=== PATIENT | female | born 1990 | race Caucasian/White ===

== ENCOUNTER 2021-08-07 14:12 | Emergency (ER) | payer OTHER, SELFPAY ==
[2021-08-07 14:31] VITALS: BP 109/65; PULSE 97; RESP 16; TEMP 37.1; O2SAT 96
--- NOTE | 2021-08-07 14:43 | XRR_ITS ---
PROCEDURE INFORMATION: Exam: XR Chest Exam date and time: 08/07/2021 2:43 PM Age: 30 years old Clinical indication: Cough and shortness of breath; Additional info: Covid + TECHNIQUE: Imaging protocol: XR of the chest. Views: 1 view. COMPARISON: No relevant prior studies available. FINDINGS: Lungs: Prominent right upper lobe pulmonary arteries otherwise unremarkable exam Pleural spaces: Unremarkable. No pleural effusion. No pneumothorax. Heart/Mediastinum: Unremarkable. No cardiomegaly. Bones/joints: Unremarkable. XR/XR chest 1V portable [id number] IMPRESSION: No acute findings.
--- NOTE | 2021-08-07 14:50 | W.ED.COVID ---
HPI - COVID General: Chief Complaint: COVID symptoms Stated Complaint: covid +:diff breathing, low O2, cp w/inspiration Time Seen by Provider: 08/07/21 14:45 Source: patient Mode of arrival: ambulatory Limitations: no limitations Triage information: Has fever, cough or shortness of breath. Exposure to COVID + person last 14 days History of Present Illness: HPI Narrative: Patient is a 30-year-old female known COVID positive patient on day 6 of symptoms here for complaints of shortness of breath, trouble breathing with exertion, and some lightheadedness/dizziness. Patient tested positive at a drive through facility in [place], [place]. Positive results verified on her phone. MD complaint: known COVID positive Prior covid testing: yes, results known Prior testing date: 08/01/21 COVID 19 common symptoms: positive non-productive cough, dyspnea, body aches, headache(s) and chest tightness; negative throat pain, nasal congestion, nausea, vomiting or diarrhea COVID 19 other sytmptoms: positive chest pain Onset (ago): day(s) Severity: moderate Pertinent comorbid conditions: obesity COVID Results: No Data to Display Review of Systems Const: Reports: body aches ENMT: Denies: throat pain, odynophagia, nasal discharge or nasal congestion Card: Reports: chest pain, lightheadedness and dyspnea on exertion; Denies: palpitations, irregular heart rhythm, edema, swelling of feet/ankles, syncope, pre-syncope, orthopnea, leg pain with exertion or acrocyanosis Resp: Reports: dyspnea and non-productive cough; Denies: wheezing, hemoptysis or chest congestion GI: Denies: abdominal pain, nausea, vomiting or diarrhea Musc: Denies: neck pain or back pain Skin/Breast: Denies: rash Neuro: Reports: headache(s) Physical Exam Const: COMMON NORMALS: no acute distress, patient oriented x3, no limitations and alert GENERAL APPEARANCE: cooperative NUTRITIONAL APPEARANCE: obese ORIENTATION/CONSCIOUSNESS: Yes awake, Yes oriented to person, Yes oriented to place and Yes oriented to time Resp: COMMON NORMALS: normal respiratory effort and clear to auscultation bilaterally AUSCULTATION: clear to auscultation bilaterally Cardio: COMMON NORMALS: regular rate and regular rhythm RATE: regular rate RHYTHM: regular rhythm Extremity: COMMON NORMALS: no clubbing, cyanosis or edema, no calf tenderness and no pedal edema Neuro: COMMON NORMALS: patient oriented x3 SENSORIUM/ORIENTATION: Yes alert, Yes oriented to person, Yes oriented to place and Yes oriented to time Skin: COMMON NORMALS: no rashes or lesions noted GENERAL SKIN EXAM: no rashes or lesions noted Course Vital Signs: Vital signs: Vital Signs Temperature 98.8 F 08/07/21 14:31 Pulse Rate 96 08/07/21 19:25 Respiratory Rate 17 08/07/21 18:03 Blood Pressure 95/64 08/07/21 19:25 Pulse Oximetry 95 08/07/21 19:25 MDM - COVID MDM Narrative: Medical decision making narrative: Patient morbidly obese with bilateral infiltrates on CXR consistent with COVID-19 pneumonia. She is on day 6 of symptoms. With it being a holiday weekend and the infusion center being closed, the soonest I foresee her being able to receive MCA would be on Monday which would place her on day 10 of symptoms. I think she would greatly benefit from receiving MCA today prior to discharge to hopefully keep her from progressing to severe disease. RT did do home O2 evaluation and she did not qualify. COVID Results: No Data to Display Monoclonal Antibody - ED Inclusion/Exclusion Criteria age >/= 12 years, weight >/= 40kg /88lbs, symptom onset less than 10 days ago and + direct Sars-Cov-2 test less than 7-10 days ago obesity (BMI >25 or 85%til for age) not requiring hospitalization, not requiring oxygen (if not chronically on oxygen) and no increase oxygen requirement (if chronically on oxygen) Patient education patient/family/caregiver received/reviewed fact sheet, Emergency Use Authorization/unapproved drug status discussed with patient/family/caregiver, alternatives to this treatment discussed with patient/family/caregiver, risks and benefits of medication reviewed with patient/family/caregiver, patient/family/caregiver given opportunity for questions, which were answered and patient consents to receiving Monoclonal Antibody Treatment Plan for treatment Meets criteria for Monoclonal Antibody infusion Date of symptom(s) onset: 07/31/21 Ordering Monoclonal Antibody infusion for today Other information PATIENT HAS POSITIVE RESULTS ON HER PHONE FROM FACILITY IN [place], [place] WHERE SHE RECEIVED TESTING-THESE WERE VERIFIED BY MYSELF. Discharge Plan Discharge Patient Disposition: Home Clinical Impression: Pneumonia due to COVID-19 virus Condition: Stable Prescriptions: New dexamethasone 6 mg tablet 6 mg PO DAILY Qty: 6 RF: 0 Discharge Orders: Discharge ED (Routine); Ordered 08/07/21 Ordered By: Dana Barber Referrals: Georgie Arreola MD [Primary Care Provider] - Patient Instructions: COVID-19 (Coronavirus Disease 2019) (ED) Coding Level of Care Code ED Algebra Teacher for Chg Fwd Exam Detailed
[2021-08-07 16:07] VITALS: O2SAT 96; O2SAT 97
[2021-08-07 18:03] VITALS: BP 127/79; PULSE 88; RESP 17; O2SAT 98
[2021-08-07 18:07] VITALS: O2SAT 96
[2021-08-07 19:25] VITALS: BP 95/64; PULSE 96; O2SAT 95
== END 2021-08-07 19:25 | disposition home or self-care (01) ==
PROVIDERS: Emergency Provider Physician Assistant; PCP Family Medicine
DX: U07.1 COVID-19 (principal); J12.82 Pneumonia due to coronavirus disease 2019
CPT/HCPCS: 71045; 96365; 99284